=== PATIENT | male | born 1985 | race Caucasian/White ===

== ENCOUNTER → 2018-01-01 09:56 | Outpatient (CLI) | payer MEDICAID, SELFPAY ==
--- NOTE | 2018-01-01 10:07 | NM_ITS ---
NM hepatobiliary wo pharm HISTORY: Right upper quadrant pain ITS.REASON: RUQ PAIN ORDERING PHYSICIAN: Monica Liang PATIENT AGE: 32 years COMPARISON: None DOSE: 7.89 MCI TC Choletec INJ Into RT ANT Fatty Meal Ensure FINDINGS: Homogeneous activity is present within the hepatic parenchyma. Activity is present in the gallbladder by 10 minutes. Activity is present in the small bowel by the fatty meal ingestion. The gallbladder ejection fraction is calculated to be 53% The patient did not report pain or other symptoms during the fatty meal. IMPRESSION: Unremarkable hepatobiliary scan and gallbladder ejection fraction. No evidence of common or cystic duct obstruction with normal gallbladder ejection fraction
--- NOTE | 2018-01-01 11:00 | HMH.ITSHM ---
Current Home Medications as stated by this patient Orlando Nelson or accounting representative. []ZOLOFT TRAZODONE
== END ==
PROVIDERS: PCP Family Medicine; Visit Provider Nurse Practitioner Family
DX: R10.11 Right upper quadrant pain (principal)
CPT/HCPCS: 78226; A9537